=== PATIENT | female | born 1970 | race Two or more races ===

== ENCOUNTER → 2024-07-18 | Outpatient (CLI) | payer MEDICAID, SELFPAY ==
--- NOTE | 2024-07-18 14:45 | XR_ITS ---
Examination: Screening digital mammography, bilateral Computer aided detection 3-D breast Tomosynthesis, bilateral Date and time of exam: July 18, 2024 1438 hours Compared to mammograms dating to December 15, 2021 Indication: Screening Technique: Nonmagnified MLO, CC views of the breasts to been obtained, reconstructed from 3-D Tomosynthesis images. R2 computer aided detection program utilized for evaluation of suspicious masses and/or abnormal calcifications. 3-D Tomosynthesis images obtained. Findings: The breasts are heterogeneously dense obscure small masses Again noted breast biopsy marker upper right breast Oval 8 mm partially circumscribed mass inner right breast CC view, 6.1 cm from the nipple IMPRESSION: BI-RADS Category 0: Incomplete: Need additional imaging evaluation 8 mm oval partially circumscribed mass inner right breast CC view, 6.1 cm from the nipple, recommend follow-up spot tomographic views inner upper quadrant right breast right breast sonography to complete the workup
== END | disposition home or self-care (01) ==
LOC: CDIM 14:31
PROVIDERS: Referring Provider Physician Assistant; Visit Provider Physician Assistant
DX: Z12.31 Encounter for screening mammogram for malignant neoplasm of breast (principal); N63.12 Unspecified lump in the right breast, upper inner quadrant
CPT/HCPCS: 77063; 77067

== ENCOUNTER → 2025-01-02 | Outpatient (CLI) | payer MEDICAID, SELFPAY ==
--- NOTE | 2025-01-02 15:15 | XR_ITS ---
Examination: Breast ultrasound, unilateral, right Date and time of exam: January 02, 2025 1521 hours INDICATIONS: Mammogram July 18, 2024 8 mm partially circumscribed mass inner right breast CC view, 6.1 cm from the nipple Technique: Real-time la scale ultrasonographic imaging performed right breast including all 4 quadrants as well as nipple retroareolar and axillary region. Findings: No cystic or solid mass IMPRESSION: BI-RADS Category 1: Negative study
--- NOTE | 2025-01-02 15:45 | XR_ITS ---
Examination: Diagnostic digital mammography, unilateral, right Computer aided detection 3-D breast Tomosynthesis, unilateral Date and time of exam: 2 40,025 1534 hours INDICATIONS: Mammogram July 18, 2024 18 mm oval mass circumscribed and right breast CC view, 6.1 cm from the nipple Technique: Nonmagnified MLO, CC views of the right breast have been obtained, reconstructed from 3-D Tomosynthesis images. R2 computer aided detection program utilized for evaluation of suspicious masses and/or abnormal calcifications. 3-D Tomosynthesis images obtained. Findings: The breast is heterogeneously dense, which may obscure small masses No suspicious mass is depicted on the spot compression views Impression: BI-RADS category 2: Benign findings Degenerative follow-up mammography
== END | disposition home or self-care (01) ==
LOC: CDIM 15:04
PROVIDERS: PCP Physician Assistant; Referring Provider Physician Assistant; Visit Provider Physician Assistant
DX: R92.321 Mammographic fibroglandular density, right breast (principal)
CPT/HCPCS: 76641; 77061; 77065; G0279